=== PATIENT | male | born 1955 | race Asian ===

== ENCOUNTER 2017-08-27 03:02 | Emergency (ER) | payer OTHER ==
[~2017-08-27] VITALS: Ht 172.7 cm; Wt 68.0 kg
[~2017-08-27 03:02] MED LIST: DOXYCYCLINE MO100 MG ORAL; HYDROCODON-ACE1 EA15 ORAL
[2017-08-27 03:42] VITALS: BP 167/86
--- NOTE | 2017-08-27 04:04 | Emergency Room Report ---
History of Present Illness General Chief Complaint: Lower Extremity Injury Source: Patient Present Illness HPI Patient present with complaints of pain to the right foot Complains of pain to the base of the large toe and also dorsally on the foot as well Patient thinks that it might be gout denies any fall or trauma Denies any proximal leg pain denies any Fevers or chills Patient reports that he also had some discomfort to the left foot however mainly on the right Denies taking any medication for this Allergies: Coded Allergies: No Known Allergies (Unverified , 10/03/16) Patient History Past Medical History: see triage record Pertinent Family History: none Reviewed Nursing Documentation: PMH: Agreed, PSxH: Agreed Nursing Documentation-PMH Hx Cardiac Problems: Yes Hx Hypertension: Yes Hx Diabetes: Yes Review of Systems All Other Systems: negative except mentioned in HPI Physical Exam Vital Signs Date Time Temp Pulse Resp B/P (MAP) Pulse Ox O2 Delivery O2 Flow Rate FiO2 08/27/17 03:13 98.1 69 18 167/86 98 Room Air Sp02 EP Interpretation: reviewed, normal General Appearance: no apparent distress Head: normocephalic, atraumatic Eyes: bilateral eye PERRL, bilateral eye EOMI ENT: normal pharynx Neck: full range of motion, supple Respiratory: lungs clear, normal breath sounds Cardiovascular #1: regular rate, rhythm Gastrointestinal: non tender, soft Musculoskeletal: other - Mild swelling to the base of the right large toe, tender on palpation, no obvious erythema neurovascularly intact Neurologic: alert, oriented x3, responsive Skin: other - as above Lymphatic: no adenopathy Medical Decision Making Diagnostic Impression: Primary Impression: Gout attack ER Course Multiple differentials including but not limited to buckle fracture, arthralgia gout arthralgia, vascular insufficiency entertained Patient has clinical symptoms of acute gouty attack patient has done better with acute intervention and is stable for close outpatient followup Last Vital Signs Date Time Temp Pulse Resp B/P (MAP) Pulse Ox O2 Delivery O2 Flow Rate FiO2 08/27/17 03:42 98.1 76 18 167/86 98 Room Air Status: improved Disposition: HOME, SELF-CARE Condition: Improved Scripts Indomethacin (Indocin) 75 Mg Capsule.er 75 MG ORAL DAILY, #12 CAP Prov: ZA GILLESPIE D.O. 08/27/17 Referrals: [facility],REFERRING (PCP) Additional Instructions: Patient is provided with the discharge instructions notified to follow up with primary doctor in the next 2-3 days otherwise return to the er with any worsening symptoms. Please note that this report is being documented using IQMS technology. This can lead to erroneous entry secondary to incorrect interpretation by the dictating instrument. ZA GILLESPIE D.O. Aug 27, 2017 04:04
[2017-08-27] MEDS ORDERED: Norco 10mg/325mg tab ORAL ONE (04:15)
[2017-08-27] MEDS ORDERED: Ketorolac 60mg Inj IM ONE (04:15)
[2017-08-27] MEDS ORDERED: INDOCIN75 MG ORAL (05:26)
== END 2017-08-27 05:42 | disposition home or self-care (01) ==
LOC: MERGE 03:28 → EMR 03:28
DX: M10.9 Gout, unspecified (principal); E11.9 Type 2 diabetes mellitus without complications; I10 Essential (primary) hypertension
CPT/HCPCS: 99283

== ENCOUNTER 2018-03-07 21:35 | Emergency (ER) | payer OTHER ==
[~2018-03-07] VITALS: Ht 172.7 cm; Wt 72.6 kg
[~2018-03-07 21:35] MED LIST changes: +INDOCIN75 MG ORAL
[2018-03-07] MEDS ORDERED: UNOBMED (21:47)
[2018-03-07 21:55] VITALS: BP 155/97
[2018-03-07] MEDS ORDERED: Norco 5mg/325mg tab ORAL ONE (22:45)
[2018-03-07] MEDS ORDERED: IBUPROFEN600 MG ORAL (23:44)
[2018-03-07] MEDS ORDERED: NORCO 5-325 TA1 EACH ORAL (23:44)
[2018-03-07 23:48] VITALS: BP 150/78
[2018-03-07 23:51] VITALS: BP 150/78
--- NOTE | 2018-04-01 06:55 | Emergency Room Report ---
History of Present Illness General Chief Complaint: Pain Source: Patient Present Illness HPI Patient is a 62-year-old male who presented after increased right-sided lower extremity pain. Patient gradual onset of symptoms. Patient reports having prior history of gout. The patient reports having previous surgery to his lower extremities. Patient reports having increased discomfort. He denies any fever. He had previously been taking indomethacin. Allergies: Coded Allergies: No Known Allergies (Unverified , 11/18/17) Patient History Past Medical History: see triage record Reviewed Nursing Documentation: PMH: Agreed; PSxH: Agreed Nursing Documentation-PMH Past Medical History: No History, Except For Hx Hypertension: Yes Hx COPD: No - gout Review of Systems All Other Systems: negative except mentioned in HPI Physical Exam General Appearance: well appearing, no apparent distress, alert, GCS 15, non- toxic Head: normocephalic, atraumatic ENT: hearing grossly normal, normal voice Neck: full range of motion, supple Respiratory: no respiratory distress, speaking full sentences Gastrointestinal: normal inspection, normal bowel sounds, non tender, soft Musculoskeletal: swelling - minimal swelling, no erythema, pulses present Neurologic: normal inspection, alert, oriented x3, 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 Differential diagnosis included but was not limited to fracture, contusion, vascular insufficiency, aortic aneurysm, cellulitis, arthritis. Patient has a benign exam and does not appear to require any further imaging or laboratory testing at this time. The patient given pain medications. I had improvement in symptoms. Patient was advised follow-up with his primary care physician for reevaluation one to 2 days. Status: improved Disposition: HOME, SELF-CARE Condition: Stable Scripts Ibuprofen* (MOTRIN*) 600 Mg Tablet 600 MG ORAL Q8H PRN for For Pain, #30 TAB 0 Refills Prov: Tucker Lagunas MD 03/07/18 Hydrocodone Bit/Acetaminophen 5-325* (NORCO 5-325*) 1 Each Tablet 1 TAB ORAL Q6H PRN for For Pain, #10 TAB 0 Refills Prov: Tucker Lagunas MD 03/07/18 Patient Instructions: Tucker Renee MD April 01, 2018 06:55
== END 2018-03-07 23:51 | disposition home or self-care (01) ==
LOC: EMR 22:38
DX: M19.90 Unspecified osteoarthritis, unspecified site (principal); M10.9 Gout, unspecified; I10 Essential (primary) hypertension
CPT/HCPCS: 99283; J7512

== ENCOUNTER 2018-07-25 21:33 | Emergency (ER) | payer OTHER ==
[~2018-07-25] VITALS: Ht 167.6 cm; Wt 72.6 kg
[~2018-07-25 21:33] MED LIST changes: +IBUPROFEN600 MG ORAL; +NORCO 5-325 TA1 EACH ORAL; +UNOBMED
[2018-07-25 21:40] VITALS: BP 151/102
[2018-07-25] MEDS ORDERED: Norco 5mg/325mg tab ORAL ONE (22:00)
[2018-07-25] MEDS ORDERED: HYDROCODON-ACE1 EA15 ORAL (22:46)
[2018-07-25] MEDS ORDERED: IBUPROFEN600 MG ORAL (22:46)
--- NOTE | 2018-07-25 22:47 | Emergency Room Report ---
History of Present Illness General Chief Complaint: Pain Source: Patient Present Illness HPI Is a 63-year-old male with a history of high blood pressure and gout. He presents with chief complaint of right knee pain. He woke up this morning with pain in his right knee. He went to see an acupuncture and had procedure done on it. Pain got worse tonight. Unable to walk. Pain is 10 out of 10. Worse with movement and bending his knee. Similar to his previous gout attack. He said he usually get gout in the right knee and left ankle area. No trauma. No swelling. No fever. Allergies: Coded Allergies: No Known Allergies (Unverified , 11/18/17) Patient History Past Medical History: see triage record, old chart reviewed, HTN Past Surgical History: other Pertinent Family History: none Social History: Denies: smoking Immunizations: other Reviewed Nursing Documentation: PMH: Agreed; PSxH: Agreed Nursing Documentation-PMH Hx Cardiac Problems: Yes - UNK HEART PROBLEM Hx Hypertension: Yes Hx COPD: No - gout Review of Systems Eye: Denies: eye pain, blurred vision ENT: Denies: ear pain, nose congestion, throat swelling Respiratory: Denies: cough, shortness of breath Cardiovascular: Denies: chest pain, palpitations Gastrointestinal: Denies: abdominal pain, diarrhea, nausea, vomiting Musculoskeletal: Reports: joint pain; Denies: back pain Skin: Denies: rash Neurological: Denies: headache, numbness Endocrine: Denies: increased thirst, increased urine Hematologic/Lymphatic: Denies: easy bruising All Other Systems: negative except mentioned in HPI Physical Exam Vital Signs Date Time Temp Pulse Resp B/P (MAP) Pulse Ox O2 Delivery O2 Flow Rate FiO2 07/25/18 21:37 98.0 60 16 151/102 98 Room Air 98.1 vitals with high blood pressure Sp02 EP Interpretation: reviewed, normal General Appearance: well appearing, no apparent distress, alert Head: normocephalic, atraumatic Eyes: bilateral eye PERRL, bilateral eye EOMI ENT: hearing grossly normal, normal pharynx Neck: full range of motion, supple, no meningismus Respiratory: chest non-tender, lungs clear, normal breath sounds Cardiovascular #1: regular rate, rhythm, no murmur Gastrointestinal: normal bowel sounds, non tender, no mass, no organomegaly, no bruit, non-distended Musculoskeletal: back normal, gait/station normal, other - Right knee: There is tenderness to the prepatellar tendon. Decreased range of motion secondary to pain. No warmth or redness. Minimal edema. Neurologic: alert, oriented x3 Psychiatric: mood/affect normal Skin: warm/dry Procedures Splinting Splinting : Consent: Verbal Location: Right knee Pre-Made Type: knee immobilizer Pre-Proc Neuro Vasc Exam: normal Post-Proc Neuro Vasc Exam: normal Patient Tolerated: Well Complications: None Medical Decision Making Diagnostic Impression: Primary Impression: Knee pain, right Qualified Codes: M25.561 - Pain in right knee ER Course Patient with right knee pain. This may be a prepatellar bursitis, gout, inflammation, arthritis and name a few. Doubt septic joint since he has no fever or redness. Similar symptom in the past. We'll discharge home. Other X-Ray Diagnostic Results Other X-Ray Diagnostic Results : X-Ray ordered: Right knee x-rays # of Views/Limited Vs Complete: 4 View Indication: Pain EP Interpretation: Yes Interpretation: no dislocation, no soft tissue swelling, no fractures Impression: No acute disease Electronically Signed by: Frandy Perea MD Last Vital Signs Date Time Temp Pulse Resp B/P (MAP) Pulse Ox O2 Delivery O2 Flow Rate FiO2 07/25/18 22:14 98.0 07/25/18 21:37 60 16 151/102 98 Room Air Status: improved Disposition: HOME, SELF-CARE Condition: Stable Scripts Ibuprofen* (MOTRIN*) 600 Mg Tablet 600 MG ORAL THREE TIMES A DAY, #30 TAB 0 Refills Prov: FRANDY PEREA M.D. 07/25/18 Hydrocodone/Acetaminophen 5-325* (HYDROCODONE/ACETAMINOPHEN 5-325*) 1 Each Tablet 1 TAB ORAL Q6H PRN for For Pain, #20 TAB 0 Refills Prov: FRANDY PEREA M.D. 07/25/18 Referrals: [facility],REFERRING (PCP) Additional Instructions: Elevate leg. Use crutches. Follow-up your doctor in 7 days. Return if symptom worsen. FRANDY PEREA M.D. Jul 25, 2018 22:47
[2018-07-25 23:03] VITALS: BP 151/102
--- NOTE | 2018-07-25 23:05 | Diagnostic Imaging Report ---
EXAM: XR Right Knee, 3 views CLINICAL HISTORY: PAIN TECHNIQUE: Three views of the right knee. COMPARISON: No relevant prior studies available. FINDINGS: Bones/joints: No acute fracture. Small effusion. Soft tissues: No radiodense foreign body. Soft tissue swelling. IMPRESSION: No acute fracture.
== END 2018-07-25 23:03 | disposition home or self-care (01) ==
LOC: EDBD 21:33 → EDUNIT# 21:33 → EMR 22:02
DX: M25.561 Pain in right knee (principal); I10 Essential (primary) hypertension
CPT/HCPCS: 29515; 99283

== ENCOUNTER 2018-07-28 03:38 | Emergency (ER) | payer OTHER ==
[~2018-07-28] VITALS: Ht 167.6 cm; Wt 68.0 kg
[2018-07-28] MEDS ORDERED: Ketorolac 30mg Inj IV ONE (04:30)
--- NOTE | 2018-07-28 04:33 | Emergency Room Report ---
History of Present Illness General Chief Complaint: Lower Extremity Injury Source: Patient Present Illness HPI Patient presents with right knee pain. He was seen here on the . He was treated with pain medication however the pain is still severe in the knee. He feels "fever" in the knee but it is not hot to touch. He's had no chills or overall fever. No weakness or numbness. The pain is rated 8/10 burning, constant, radiates somewhat to his hip, but denies hip pain. When seen before, pain was 10/10 (suggesting meds taken have helped). ESR was elevated but WBC was normal. The patient was seen by an herbalist and they performed moxibustion. Initially , he states needles were used, but then denies this. There is bruising from the treatment. No uric acid was done when he was here before however the patient has a history of gout. Never taken colchicine or allopurinol (to his knowledge). Patient also takes some water pill for hypertension. He does not know the names of the medications he is on. No chest pain, dyspnea, leg swelling. 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 Past Medical History: see triage record, old chart reviewed Social History: Denies: smoking Social History Narrative came by cab Reviewed Nursing Documentation: PMH: Agreed; PSxH: Agreed Nursing Documentation-PMH Past Medical History: No History, Except For Hx Hypertension: Yes Hx COPD: No - gout Review of Systems Constitutional: Reports: see HPI Respiratory: Reports: see HPI Cardiovascular: Reports: see HPI Gastrointestinal: Denies: nausea, vomiting Musculoskeletal: Reports: see HPI Skin: Reports: see HPI Neurological: Reports: see HPI Hematologic/Lymphatic: Reports: see HPI Physical Exam Vital Signs Date Time Temp Pulse Resp B/P (MAP) Pulse Ox O2 Delivery O2 Flow Rate FiO2 07/28/18 03:58 98.0 82 20 123/77 97 Room Air 98.1 Sp02 EP Interpretation: reviewed, normal General Appearance: well appearing, no apparent distress, GCS 15 Head: normocephalic, atraumatic Eyes: bilateral eye normal inspection, bilateral eye PERRL ENT: moist mucus membranes Neck: supple Respiratory: lungs clear, normal breath sounds Cardiovascular #1: regular rate, rhythm Cardiovascular #2: 2+ radial (R) Gastrointestinal: normal inspection, normal bowel sounds, non tender, no mass, non-distended Musculoskeletal: back normal, decreased range of motion - R knee, due to pain. No tenderness to palpation and no effusion, other - walks with crutches Neurologic: alert, oriented x3, motor strength/tone normal, sensory intact, speech normal Psychiatric: mood/affect normal Skin: warm/dry, other - ecchymoses from moxibustion, possible betadene on skin , no lesions, no erythema or warmth Medical Decision Making Diagnostic Impression: Primary Impression: Knee pain Qualified Codes: M25.561 - Pain in right knee Additional Impression: H/O: gout ER Course Patient re-presents with right knee pain. Differential includes septic knee, osteoarthritis, gout, pseudogout, strain amongst others. Patient will be evaluated with labs. He'll be treated with colchicine and Toradol. X-rays will be reviewed. Labs significant for normal white count renal function uric acid. (Prior labs reviewed) X-ray of the knee is reviewed which reveals no DJD but a small effusion. ( Clinically, no effusion present on exam.) Patient still complaining of pain and a dose of morphine was given. The patient has improvement, resting without moaning and states much relief. There is no evidence of a septic knee. The knee is not hot and there is no erythema. There are ecchymoses from the moxibustion, however, no breaks in the skin. There is no clinical effusion at this time. Even though uric acid is normal, gout is suspected. Addition of colchicine should (and most likely did) help. Knee immobilizer is placed by assembly technician. Position is excellent and neurovascular is normal. There is improvement with the stabilization. Patient was advised that if the current medications does not provide relief, to return. Patient is stable for outpatient observation and treatment. Laboratory Tests Test 07/28/18 04:20 07/28/18 04:22 White Blood Count 8.2 K/UL (4.8-10.8) Red Blood Count 4.45 M/UL (4.70-6.10) L Hemoglobin 13.4 G/DL (14.2-18.0) L Hematocrit 37.9 % (42.0-52.0) L Mean Corpuscular Volume 85 FL (80-99) Mean Corpuscular Hemoglobin 30.2 PG (27.0-31.0) Mean Corpuscular Hemoglobin Concent 35.4 G/DL (32.0-36.0) Red Cell Distribution Width 12.1 % (11.6-14.8) Platelet Count 160 K/UL (150-450) Mean Platelet Volume 7.6 FL (6.5-10.1) Neutrophils (%) (Auto) 62.9 % (45.0-75.0) Lymphocytes (%) (Auto) 22.6 % (20.0-45.0) Monocytes (%) (Auto) 9.0 % (1.0-10.0) Eosinophils (%) (Auto) 4.4 % (0.0-3.0) H Basophils (%) (Auto) 1.1 % (0.0-2.0) Sodium Level 141 MMOL/L (136-145) Potassium Level 4.2 MMOL/L (3.5-5.1) Chloride Level 105 MMOL/L (98-107) Carbon Dioxide Level 30 MMOL/L (21-32) Anion Gap 6 mmol/L (5-15) Blood Urea Nitrogen 14 mg/dL (7-18) Creatinine 1.2 MG/DL (0.55-1.30) Estimate Glomerular Filtration Rate > 60 mL/min (>60) Glucose Level 106 MG/DL (74-106) Uric Acid 5.5 MG/DL (2.6-7.2) Calcium Level 9.4 MG/DL (8.5-10.1) Total Bilirubin 0.5 MG/DL (0.2-1.0) Aspartate Amino Transferase (AST) 22 U/L (15-37) Alanine Aminotransferase (ALT) 40 U/L (12-78) Alkaline Phosphatase 61 U/L (46-116) Total Protein 7.4 G/DL (6.4-8.2) Albumin 3.6 G/DL (3.4-5.0) Globulin 3.8 g/dL Albumin/Globulin Ratio 0.9 (1.0-2.7) L Other X-Ray Diagnostic Results Other X-Ray Diagnostic Results : X-Ray ordered: knee from 9-14 # of Views/Limited Vs Complete: 3 View Indication: Pain Interpretation: no dislocation, no soft tissue swelling, no fractures, other - effusion Impression: Other Electronically Signed by: Electronically signed by Sundeep Alvarado MD Last Vital Signs Date Time Temp Pulse Resp B/P (MAP) Pulse Ox O2 Delivery O2 Flow Rate FiO2 07/28/18 07:09 98.0 20 126/83 97 Room Air 208.4 07/28/18 03:58 82 Status: improved Disposition: HOME, SELF-CARE Condition: Improved Scripts Colchicine (Colchicine) 0.6 Mg Capsule 0.6 MG PO Q6HR PRN for joint pain, #14 CAP 1 Refill Prov: Sundeep Alvarado M.D. 07/28/18 Referrals: NON PHYSICIAN (PCP) Sundeep Alvarado M.D. Jul 28, 2018 04:33
[2018-07-28 04:50] LABS: BASOPHILS % (AUTO) 1.1 % (0.0-2.0); EOSINOPHILS % (AUTO) 4.4 % (0.0-3.0); HEMATOCRIT 37.9 % (42.0-52.0); HEMOGLOBIN 13.4 G/DL (14.2-18.0); LYMPHOCYTES % (AUTO) 22.6 % (20.0-45.0); MEAN CORPUSCULAR VOLUME 85 FL (80-99); NEUTROPHILS % (AUTO) 62.9 % (45.0-75.0); PLATELET COUNT 160 K/UL (150-450); RED BLOOD COUNT 4.45 M/UL (4.70-6.10); RED CELL DISTRIBUTION WIDTH 12.1 % (11.6-14.8); WHITE BLOOD COUNT 8.2 K/UL (4.8-10.8)
[2018-07-28 04:55] LABS: ANION GAP 6 mmol/L (5-15); BLOOD UREA NITROGEN 14 mg/dL (7-18); CALCIUM 9.4 MG/DL (8.5-10.1); CARBON DIOXIDE 30 MMOL/L (21-32); CHLORIDE 105 MMOL/L (98-107); CREATININE 1.2 MG/DL (0.55-1.30); POTASSIUM 4.2 MMOL/L (3.5-5.1); SODIUM 141 MMOL/L (136-145)
[2018-07-28 05:02] LABS: ALANINE AMINOTRANSFERASE 40 U/L (12-78); ALBUMIN 3.6 G/DL (3.4-5.0); ALBUMIN/GLOBULIN RATIO 0.9 (1.0-2.7); ALKALINE PHOSPHATASE 61 U/L (46-116); ASPARTATE AMINO TRANSFERASE 22 U/L (15-37); BILIRUBIN,TOTAL 0.5 MG/DL (0.2-1.0)
[2018-07-28] MEDS ORDERED: Morphine Sulfate 4mg/ml Inj (IV USE ONLY) IVP ONE (05:45)
[2018-07-28] MEDS ORDERED: COLCHICINE0.6 M1 PO (06:41)
[2018-07-28 07:09] VITALS: BP 126/83
== END 2018-07-28 07:12 | disposition home or self-care (01) ==
LOC: EMR 04:14
DX: M25.561 Pain in right knee (principal); M25.551 Pain in right hip; I10 Essential (primary) hypertension; Z87.898 Personal history of other specified conditions
CPT/HCPCS: 36415; 80053; 84550; 85025; 96374; 96375; 99284; J1885; J2270; J2405